=== PATIENT | female | born 1970 | race Caucasian/White ===

== ENCOUNTER 2017-04-29 22:56 | Emergency (ER) | payer OTHER ==
[2017-04-29 23:06] VITALS: BP 98/65; PULSE 70; TEMP 98.5; BMI 33.7
[2017-04-29] MEDS ORDERED: SODIUM CHLORIDE 1,000 ML IV STA (23:43)
[2017-04-29] MEDS ORDERED: ONDANSETRON 4 MG/2 ML VIAL IVPB ONE (23:43)
[2017-04-29] MEDS ORDERED: morphine CARPU-JECT 4 MG/1 ML DISP.SYRIN IVPUSH ONE (23:43)
--- NOTE | 2017-04-29 23:58 | PDOC ---
History of Present Illness - General Chief Complaint: Pain Stated Complaint: ABDOMINAL/BACK PAIN Time Seen by Provider: 04/29/17 23:36 History Source: Patient Exam Limitations: No Limitations - History of Present Illness Initial Comments: 04/29/17 23:51 Patient is a 46F with a history of HTN here today with abdominal pain for the past 2 days. The pain is epigastric radiating to the back. She is also complaining of associated shortness of breath, vomiting and diarrhea. She denies fevers and chills. She denies blood in the vomit, coffee ground emesis, blood in stool and melena. LMP was 3 days ago. Past History - Past Medical History Allergies/Adverse Reactions: Allergies Allergy/AdvReac Type Severity Reaction Status Date / Time No Known Allergies Allergy Verified 04/29/17 23:06 Home Medications: Ambulatory Orders Acetaminophen/Caffeine/Butalb [Fioricet -] 1 tab PO Q6H PRN #30 tablet 10/02/15 Amitriptyline HCl [Elavil -] 25 mg PO HS #30 tablet 10/02/15 Ondansetron [Zofran *Odt*] 8 mg SL BID #10 od.tablet 04/30/17 HTN: Yes Suicide Attempt (Hx): No - Psycho/Social/Smoking Cessation Hx Anxiety: No Suicidal Ideation: No Smoking Status: No Smoking History: Never smoked Have you smoked in the past 12 months: No Number of Cigarettes Smoked Daily: 0 Information on smoking cessation initiated: No Hx Alcohol Use: No Drug/Substance Use Hx: No Substance Use Type: None Hx Substance Use Treatment: No Review of Systems - Review of Systems Comments:: 04/29/17 23:58 GENERAL/CONSTITUTIONAL: No fever or chills. No weakness. HEAD, EYES, EARS, NOSE AND THROAT: No change in vision. No ear pain or discharge. No sore throat. CARDIOVASCULAR: No chest pain. Positive for shortness of breath. RESPIRATORY: No cough, wheezing, or hemoptysis. GASTROINTESTINAL: Positive for nausea, vomiting, and diarrhea. Negative for constipation. GENITOURINARY: No dysuria, frequency, or change in urination. MUSCULOSKELETAL: No joint or muscle swelling or pain. No neck or back pain. SKIN: No rash NEUROLOGIC: No headache, vertigo, loss of consciousness, or change in strength/ sensation. ALLERGIC/IMMUNOLOGIC: No hives or skin allergy. *Physical Exam - Vital Signs Last Vital Signs Temp Pulse Resp BP Pulse Ox 98.5 F 70 17 98/65 100 04/29/17 23:03 04/29/17 23:03 04/29/17 23:03 04/29/17 23:03 04/29/17 23:03 - Physical Exam Comments: 04/29/17 23:59 GENERAL: Awake, alert, and fully oriented, in moderate distress HEAD: No signs of trauma, normocephalic, atraumatic EYES: PERRLA, EOMI, sclera anicteric, conjunctiva clear ENT: Auricles normal inspection, hearing grossly normal, nares patent, oropharynx clear without exudates. LUNGS: No distress, speaks full sentences, clear to auscultation bilaterally HEART: Regular rate and rhythm, normal S1 and S2, no murmurs, rubs or gallops, peripheral pulses normal and equal bilaterally. ABDOMEN: Tender in epigastric area. Normal bowel sounds. Negative suarez sign. No guarding, no rebound. No masses EXTREMITIES: Normal inspection, Normal range of motion, no edema. No clubbing or cyanosis. NEUROLOGICAL: Cranial nerves II through XII grossly intact. Normal speech, no focal sensorimotor deficits SKIN: Warm, Dry, normal turgor, no rashes or lesions noted. ED Treatment Course - LABORATORY CBC & Chemistry Diagram: 04/30/17 00:15 04/30/17 00:15 Medical Decision Making - Medical Decision Making 04/30/17 00:01 46F with history of HTN here today with epigastric abdominal pain radiating to the back. Vital signs stable and normal. Differential diagnosis includes, but is not limited to: pancreatitis, cholecystitis, gastritis. Will evaluate with CBC, CMP, UA, Upreg, LDH, Lipase, and Ultrasound. Given 1L NS, 4mg morphine, 4mg zofran. 04/30/17 01:05 WBC 19. 04/30/17 02:05 Lipase negative. Bili of 1.2. 04/30/17 02:38 Ultrasound shows no abnormalities of gallbladder, biliary system, liver, or kidney. Patient's abdominal pain and shortness of breath has improved. Still has some paraspinal back pain. Will discharge with PCP follow up. Given return precautions and script for zofran odt. Patient expressed understanding. *DC/Admit/Observation/Transfer Diagnosis at time of Disposition: Abdominal pain Qualifiers: Abdominal location: epigastric Qualified Code(s): R10.13 - Epigastric pain - Discharge Dispostion Disposition: HOME Condition at time of disposition: Good Admit: No - Prescriptions Prescriptions: Ondansetron [Zofran *Odt*] 8 mg SL BID #10 od.tablet - Referrals Referrals: Michael Terrazas MD [Primary Care Provider] - - Patient Instructions Printed Discharge Instructions: DI for Abdominal Pain-Adult Print Language: DOMINICAN
[2017-04-30] MEDS ORDERED: morphine CARPU-JECT 2 MG/1 ML DISP.SYRIN ONE
[2017-04-30] MEDS ORDERED: ONDANSETRON 4 MG/2 ML VIAL ONE (00:01)
[2017-04-30 00:32] LABS: BASOPHIL 0.2 % (0-2.0); EOSINOPHIL 1.1 % (0-4.5); MCH 34.8 pg (25.7-33.7); MEAN CELL VOLUME 96.7 fl (80-96); MEAN PLT VOLUME 9.7 fl (7.5-11.1); PLATELET COUNT 252 K/MM3 (134-434); RDW 14.2 % (11.6-15.6)
[2017-04-30 00:33] LABS: URINE APPEARANCE SLCLOUDY; URINE BILIRUBIN NEGATIVE (NEGATIVE); URINE BLOOD 1+ (NEGATIVE); URINE COLOR DKYELLOW; URINE GLUCOSE (UA) NEGATIVE (NEGATIVE); URINE KETONE NEGATIVE (NEGATIVE); URINE LEUK ESTERASE NEGATIVE (NEGATIVE); URINE NITRITE NEGATIVE (NEGATIVE); URINE PROTEIN NEGATIVE (NEGATIVE); URINE UROBILINOGEN NEGATIVE mg/dL (0.2-1.0)
[2017-04-30 00:46] LABS: URINE MUCUS FEW; URINE RBC 2 /hpf (0-3); URINE WBC 1 /hpf (3-5)
[2017-04-30 00:58] LABS: ALBUMIN 3.8 g/dl (3.4-5.0); ALK PHOS 90 U/L (45-117); ANION GAP 9 (8-16); BILIRUBIN,TOTAL 1.2 mg/dL (0.2-1.0); CALCIUM 8.4 mg/dL (8.5-10.1); CO2 25 mmol/L (21-32); CREATININE 0.5 mg/dL (0.55-1.02); GLUCOSE,RANDOM 101 mg/dL (74-106); SGOT/AST 20 U/L (15-37); SGPT/ALT 36 U/L (12-78); TOT PROT 6.6 g/dl (6.4-8.2)
[2017-04-30 01:24] LABS: CPK 43 IU/L (26-192); TROPONIN I < 0.02 ng/ml (0.00-0.05)
--- NOTE | 2017-04-30 02:06 | PDOC ---
Attending Attestation - Resident Resident Name: Suresh Nunez - ED Attending Attestation I have performed the following: I have examined & evaluated the patient, The case was reviewed & discussed with the resident, I agree w/resident's findings & plan, Exceptions are as noted - HPI HPI: 04/30/17 02:04 46-year-old female with past medical history of hypertension presents with epigastric left upper quadrant pain with associated nausea vomiting and diarrhea since yesterday. Denies fevers or chills. Reports that the epigastric pain radiates to her back. States she had 2 episodes of vomiting and 2 episodes of diarrhea today. Denies sick contacts or recent travels. Came into the ED for further management. Denies history of gallstones. - Physicial Exam PE: 04/30/17 02:05 GENERAL: Awake, alert, and fully oriented, in no acute distress. HEAD: No signs of trauma EYES: PERRLA, EOMI, sclera anicteric, conjunctiva clear ENT: Auricles normal inspection, hearing grossly normal, nares patent, oropharynx clear without exudates. NECK: Normal ROM, supple, no lymphadenopathy, JVD, or masses LUNGS: Breath sounds equal, clear to auscultation bilaterally. No wheezes, and no crackles HEART: Regular rate and rhythm, normal S1 and S2, no murmurs, rubs or gallops ABDOMEN: TTP epigastric and LUQ. Soft,normoactive bowel sounds. No guarding, no rebound. No masses EXTREMITIES: Normal range of motion, no edema. No clubbing or cyanosis. No cords, erythema, or tenderness NEUROLOGICAL: Cranial nerves II through XII grossly intact. Normal speech, normal gait SKIN: Warm, Dry, normal turgor, no rashes or lesions noted. - Medical Decision Making 04/30/17 02:05 Vital Signs Temp Pulse Resp BP Pulse Ox 98.5 F 70 17 98/65 100 04/29/17 23:03 04/29/17 23:03 04/29/17 23:03 04/29/17 23:03 04/29/17 23:03 46-year-old female patient presents with likely gastroenteritis. However, white count noted to be 19. We'll obtain a right upper quadrant ultrasound to evaluate for the gallbladder. Labs, GI cocktail, IV fluids and reassess. If patient continues to feel unwell and continues to have abdominal tenders, consider CAT scan. If the workup is unremarkable the patient reports feeling better, patient be discharged. 04/30/17 18:39 CBC, BMP 04/30/17 00:15 04/30/17 00:15 CMP Sodium 142 mmol/L (136-145) 04/30/17 00:15 Potassium 4.2 mmol/L (3.5-5.1) 04/30/17 00:15 Chloride 108 mmol/L (98-107) H 04/30/17 00:15 Carbon Dioxide 25 mmol/L (21-32) 04/30/17 00:15 Anion Gap 9 (8-16) 04/30/17 00:15 BUN 15 mg/dL (7-18) D 04/30/17 00:15 Creatinine 0.5 mg/dL (0.55-1.02) L 04/30/17 00:15 Creat Clearance w eGFR > 60 (>60) 04/30/17 00:15 Random Glucose 101 mg/dL (74-106) D 04/30/17 00:15 Calcium 8.4 mg/dL (8.5-10.1) L 04/30/17 00:15 Total Bilirubin 1.2 mg/dL (0.2-1.0) H D 04/30/17 00:15 AST 20 U/L (15-37) D 04/30/17 00:15 ALT 36 U/L (12-78) D 04/30/17 00:15 Alkaline Phosphatase 90 U/L (45-117) 04/30/17 00:15 LD Total 173 U/L (84-246) 04/30/17 00:15 Creatine Kinase 43 IU/L (26-192) 04/30/17 01:00 Troponin I < 0.02 ng/ml (0.00-0.05) 04/30/17 01:00 Total Protein 6.6 g/dl (6.4-8.2) 04/30/17 00:15 Albumin 3.8 g/dl (3.4-5.0) 04/30/17 00:15 Lipase 127 U/L (73-393) 04/30/17 00:15 Urine Test Results Urine Color Dkyellow 04/30/17 00:15 Urine Appearance Slcloudy 04/30/17 00:15 Urine pH 5.0 (5.0-8.0) 04/30/17 00:15 Ur Specific [place] 1.025 (1.005-1.025) 04/30/17 00:15 Urine Protein Negative (NEGATIVE) 04/30/17 00:15 Urine Glucose (UA) Negative (NEGATIVE) 04/30/17 00:15 Urine Ketones Negative (NEGATIVE) 04/30/17 00:15 Urine Blood 1+ (NEGATIVE) H 04/30/17 00:15 Urine Nitrite Negative (NEGATIVE) 04/30/17 00:15 Urine Bilirubin Negative (NEGATIVE) 04/30/17 00:15 Ur Leukocyte Esterase Negative (NEGATIVE) 04/30/17 00:15 Urine RBC 2 /hpf (0-3) 04/30/17 00:15 Urine WBC 1 /hpf (3-5) 04/30/17 00:15 Ur Epithelial Cells Rare /hpf (FEW) 04/30/17 00:15 Urine Mucus Few 04/30/17 00:15 Ultrasound reviewed. NO acute findings. Despite the elevated WBC, the patient reports feeling better. At this time, will treat as viral gastroenteritis. Pt requested to go home but strict return precautions were given. Heart Score/ECG Review - History History: Slightly suspicious - Electrocardiogram EKG: Normal - Age Age: 45-65 - Risk Factors Risk Factors Heart Score: Yes Hx Hypertension Based on the list above the patient has:: 1-2 risk factors - Troponin Troponin: </= normal limit - Score Heart Score - Total: 2 #1 ECG reviewed & interpreted by me at: 00:35 04/30/17 02:04 NSR 73, no std/new, TWI III, normal axis, normal intervals, QTC 458 msec
--- NOTE | 2017-05-01 21:23 | EKG ---
Test Reason : Blood Pressure : / mmHG Vent. Rate : 073 BPM Atrial Rate : 073 BPM P-R Int : 194 ms QRS Dur : 076 ms QT Int : 416 ms P-R-T Axes : 056 047 036 degrees QTc Int : 458 ms NORMAL SINUS RHYTHM NORMAL ECG WHEN COMPARED WITH ECG OF 30-SEP-2015 12:17, NO SIGNIFICANT CHANGE WAS FOUND Confirmed by NEEL BONILLA MD ([id number]) on 05/01/2017 9:23:02 PM Referred By: Confirmed By:NEEL BONILLA MD
== END 2017-04-30 03:12 | disposition home or self-care (01) ==
LOC: SUPCPDRO 22:56 → JER 22:56
PROC: 3E033GC Introduction of Other Therapeutic Substance into Peripheral Vein, Percutaneous Approach (ICD-10-PCS; principal; 2017-04-29)
DX: A08.4 Viral intestinal infection, unspecified (principal); B97.89 Other viral agents as the cause of diseases classified elsewhere; I10 Essential (primary) hypertension
CPT/HCPCS: 36415; 76705-TC; 80053; 81003; 81015; 83615; 83690; 84484; 84703; 85025; 93005; 93010; 96374; 99282-25

== ENCOUNTER 2019-05-14 14:58 | Emergency (ER) | payer OTHER ==
[2019-05-14 15:06] VITALS: BP 118/77; PULSE 63; TEMP 98.3; BMI 32.1
--- NOTE | 2019-05-14 15:06 | PDOC ---
Rapid Medical Evaluation Medical Evaluation: Allergies Allergy/AdvReac Type Severity Reaction Status Date / Time No Known Allergies Allergy Verified 04/29/17 23:06 I have performed a brief in-person evaluation of this patient. The patient presents with a chief complaint of: something flew from garbage into L eye; c/o L eye pain, FB sensation, +wears glasses Pertinent physical exam findings: no L eye injection, no obvious FB noted I have ordered the following: Nothing The patient will proceed to the ED for further evaluation. 05/14/19 15:02
[2019-05-14] MEDS ORDERED: FLUORESCEIN NA 1 EA STRIP ONE (15:55)
[2019-05-14] MEDS ORDERED: FLUORESCEIN NA 1 EA STRIP OS ONE (15:55)
[2019-05-14] MEDS ORDERED: TETRACAINE 0.5% OPHTH SOLN 2 ML BOTTLE ONE (15:55)
[2019-05-14] MEDS ORDERED: TETRACAINE 0.5% HCL 0.6ML DROPPER.BOTTLE OS ONE (15:55)
--- NOTE | 2019-05-14 16:03 | PDOC ---
History of Present Illness - General Chief Complaint: Eye Problem Stated Complaint: LT.EYE PAIN Time Seen by Provider: 05/14/19 15:02 History Source: Patient Exam Limitations: No Limitations - History of Present Illness Initial Comments: 05/14/19 16:03 48 year old female with no significant medical or surgical history presents with complaints of foreign body in left eye today. Patient reports while she was cleaning at work, some dust or garbage got into her eye. Complaining of irritation and foreign body sensation. States she rinsed her eye with water but still feels as if something is still in her eye. Timing/Duration: resolved prior to arrival Severity: mild Modifying Factors: improves with: other (no intervention) Associated Symptoms: reports: denies symptoms Aspirin Received prior to arrival: Yes: no aspirin today Asa Contraindications(Core Measure): No: Allergy Beta Martínez Contraindications(Core Measure): Yes: Not Prescribed Beta Martínez Given by EMS(Core Measure): No Beta Martínez Taken at Home(Core Measure): No Beta Martínez Not Indicated at this Time(Core Measure): No Past History - Travel Traveled outside of the country in the last 30 days: No Close contact w/someone who was outside of country & ill: No - Past Medical History Allergies/Adverse Reactions: Allergies Allergy/AdvReac Type Severity Reaction Status Date / Time No Known Allergies Allergy Verified 05/14/19 15:06 Home Medications: Ambulatory Orders Acetaminophen/Caffeine/Butalb [Fioricet -] 1 tab PO Q6H PRN #30 tablet 10/02/15 Amitriptyline HCl [Elavil -] 25 mg PO HS #30 tablet 10/02/15 Ondansetron [Zofran *Odt*] 8 mg SL BID #10 od.tablet 04/30/17 Phenylephrine/Hypromell/Gly/Pf [Clear Eyes Pure Rlf Multi-Symp] 10 ml OS BID #1 drops 05/14/19 HTN: Yes - Suicide/Smoking/Psychosocial Hx Smoking Status: No Smoking History: Never smoked Have you smoked in the past 12 months: No Number of Cigarettes Smoked Daily: 0 Hx Alcohol Use: No Drug/Substance Use Hx: No Substance Use Type: None Hx Substance Use Treatment: No Review of Systems - Review of Systems Able to Perform ROS?: Yes Is the patient limited [place] proficient: No Constitutional: No: Chills, Fever HEENTM: Yes: Eye Pain. No: Nose Pain, Nose Bleeding, Hearing Loss, Throat Pain Respiratory: No: SOB at Rest, Stridor, Wheezing Cardiac (ROS): No: Chest Pain, Lightheadedness ABD/GI: No: Blood Streaked Bowels, Poor Appetite, Vomiting, Indigestion : No: Hematuria, Incontinence Musculoskeletal: No: Gout, Joint Pain, Neck Pain Integumentary: No: Dryness, Erythema Neurological: No: Headache, Numbness *Physical Exam - Vital Signs Last Vital Signs Temp Pulse Resp BP Pulse Ox 98.3 F 63 14 118/77 99 05/14/19 15:04 05/14/19 15:04 05/14/19 15:04 05/14/19 15:04 05/14/19 15:04 - Physical Exam General Appearance: Yes: Nourished, Appropriately Dressed HEENT: positive: EOMI, GRETA, TMs Normal, Pharynx Normal, Other (+ ejection of left sclera, no apparent foreign body noted) Neck: negative: Supple, Lymphadenopathy (R), Lymphadenopathy (L) Respiratory/Chest: positive: Lungs Clear Cardiovascular: positive: Regular Rhythm, Regular Rate Medical Decision Making - Medical Decision Making 05/14/19 16:07 48 year old female with no significant medical or surgical history presents with complaints of foreign body in left eye today fluoracein staining, noted with dust inside lower eyelids flushed with normal saline + uptake at 6pm rx: clear eyes drops to rinse eyes patient instructed to use drops and ibuprofen if discomfort if sensation persist follow up with eye doctor *DC/Admit/Observation/Transfer Diagnosis at time of Disposition: Foreign body of left eye Qualifiers: Encounter type: initial encounter Qualified Code(s): T15.92XA - Foreign body on external eye, part unspecified, left eye, initial encounter - Discharge Dispostion Disposition: HOME Condition at time of disposition: Good Decision to Admit order: No - Prescriptions Prescriptions: Phenylephrine/Hypromell/Gly/Pf [Clear Eyes Pure Rlf Multi-Symp] 10 ml OS BID #1 drops - Referrals - Patient Instructions Printed Discharge Instructions: DI for Foreign Body in the Eye Additional Instructions: Please use eye drops as prescribed Do not put any other solution in eyes call eye doctor for appointment - Post Discharge Activity Forms/Work/School Notes: Back to Work
== END 2019-05-14 16:15 | disposition home or self-care (01) ==
LOC: JERFT 14:58
DX: T15.82XA Foreign body in other and multiple parts of external eye, left eye, initial encounter (principal); X58.XXXA Exposure to other specified factors, initial encounter; Y92.63 Factory as the place of occurrence of the external cause; Y99.0 Civilian activity done for income or pay
CPT/HCPCS: 99281-25

== ENCOUNTER 2023-06-26 22:05 | Emergency (ER) | payer OTHER ==
[2023-06-26 22:16] VITALS: BP 141/81; PULSE 73; RESP 18; TEMP 98; BMI 31.5
[2023-06-26] MEDS ORDERED: ACETAMINOPHEN 500 MG TABLET (FP) PO ONE (23:29)
[2023-06-26] MEDS ORDERED: LIDOCAINE 5% TOPICAL PATCH TP ONE (23:30)
[2023-06-26] MEDS ORDERED: ACETAMINOPHEN 500 MG TABLET (FP) ONE (23:40)
[2023-06-26] MEDS ORDERED: LIDOCAINE 4% PATCH TP ONE (23:40)
[2023-06-26] MEDS ORDERED: IBUPROFEN 600 MG TABLET (FP) PO ONE (23:51)
[2023-06-27] MEDS ORDERED: IBUPROFEN 600 MG TABLET (FP) PO ONE (00:11)
[2023-06-27] MEDS ORDERED: METHOCARBAMOL 500 MG TABLET PO ONE ×2 (01:22→01:52)
[2023-06-27] MEDS ORDERED: METHOCARBAMOL 500 MG TABLET ONE (01:23)
[2023-06-27] MEDS ORDERED: LIDOCAINE PATCH REMOVAL MC ONE (12:00)
== END 2023-06-27 01:49 | disposition home or self-care (01) ==
LOC: JER 22:05
DX: M54.50 Low back pain, unspecified (principal); M54.2 Cervicalgia; V43.62XA Car passenger injured in collision with other type car in traffic accident, initial encounter
CPT/HCPCS: 99283-25